=== PATIENT | female | born 1970 | race Caucasian/White ===

== ENCOUNTER 2021-03-19 16:39 | Emergency (ER) | payer OTHER ==
[~2021-03-19] VITALS: Ht 165.1 cm; Wt 63.6 kg
[2021-03-19 16:57] VITALS: BP 127/78
[2021-03-19] MEDS ORDERED: CYCL-1 PO (17:59)
== END 2021-03-19 18:06 | disposition home or self-care (01) ==
LOC: ER 16:40
DX: M54.2 Cervicalgia (principal); R51.9 Headache, unspecified; V87.7XXA Person injured in collision between other specified motor vehicles (traffic), initial encounter; Y93.89 Activity, other specified; Y92.89 Other specified places as the place of occurrence of the external cause; Y99.8 Other external cause status
CPT/HCPCS: 70450; 72125; 99285